=== PATIENT | male | born 1955 | race Caucasian/White ===

== ENCOUNTER 2025-03-14 02:10 | Emergency (ER) | payer MEDICARE, OTHER ==
[~2025-03-14] VITALS: Ht 185.4 cm; Wt 84.0 kg
[2025-03-14 02:20] VITALS: BP 176/89; PULSE 88; RESP 20; O2SAT 98
== END 2025-03-14 02:40 | disposition left against medical advice (07) ==
LOC: ER 02:10
DX: R10.84 Generalized abdominal pain (principal); Z53.21 Procedure and treatment not carried out due to patient leaving prior to being seen by health care provider